=== PATIENT | male | born 1960 | race Caucasian/White ===

== ENCOUNTER 2016-11-05 08:00 | Emergency (ER) | payer OTHER ==
[~2016-11-05] VITALS: Ht 170.2 cm; Wt 87.2 kg
[~2016-11-05 08:00] MED LIST: BG MC; CEPACOL LOZENGE 15 M MM; CIPRO500 MG PO; COL100 PO; DOK100 MG PO; GLU850 PO; HUMULIN R100 U/1 M1 SC; LAC PO; LEVOFLOXACIN500 M1 PO; LIPI20 PO; NIT0.4 SL; PRI20 PO; THERAGRAN-M1 TA4 PO; TYL325 PO; ZES10 PO
[2016-11-05 08:03] VITALS: BP 162/98
== END 2016-11-05 08:36 | disposition home or self-care (01) ==
LOC: ED 08:00
DX: K60.4 Rectal fistula (principal)